=== PATIENT | female | born 1940 | race Caucasian/White ===

== ENCOUNTER → 2018-11-25 10:54 | Outpatient (CLI) | payer MEDICARE, BC | END | disposition home or self-care (01) | LOC: D.LAB 10:54 | DX: R05 Cough (principal) ==

== ENCOUNTER → 2018-12-02 11:03 | Outpatient (CLI) | payer MEDICARE, BC | END | disposition home or self-care (01) | LOC: D.CT 11:03 | DX: R91.8 Other nonspecific abnormal finding of lung field (principal) ==

== ENCOUNTER 2018-12-23 07:02 | Outpatient (CLI) | payer MEDICARE, BC ==
[~2018-12-23] VITALS: Ht 149.9 cm; Wt 52.7 kg
[2018-12-23 07:45] LABS: ANION GAP 13.1 mmol/L (8-16); CARBON DIOXIDE 28.2 mmol/L (21.0-32.0); CREATININE - SERUM 1.1 mg/dL (0.6-1.3); POTASSIUM - SERUM 3.3 mmol/L (3.5-5.1)
[2018-12-23 07:52] LABS: BASOPHILS 0.3 % (0-2); EOSINOPHILS 3.6 % (0-7); HEMOGLOBIN 12.5 g/dL (12-16); IMMATURE GRANULOCYTES 0.2 % (0-5); LYMPHOCYTES 33.5 % (15-50); MCH 30.6 pg (26.0-34.0); MCHC 32.9 g/dL (31.0-37.0); MCV 92.9 fL (80.0-100.0); MEAN PLATELET VOLUME 9.7 fL (7.4-10.4); MONOCYTES 8.4 % (2-11); PLATELET COUNT 274 10x3/uL (130-400); RBC 4.09 10x6/uL (4.00-5.40); RDW 13.1 % (11.5-14.5); WBC 6.4 10x3/uL (4.8-10.8)
[2018-12-23] MEDS ORDERED: KLONOPIN0.5 MG PO (08:22)
[2018-12-23] MEDS ORDERED: ALBUTEROL SULF8.5 GM (08:22)
[2018-12-23] MEDS ORDERED: AMITRIPTYLINE H50 MG PO (08:23)
[2018-12-23] MEDS ORDERED: LIPITOR10 MG PO (08:23)
[2018-12-23 08:32] LABS: APTT 25.8 SECONDS (22.8-39.4); INR 0.96 (0.85-1.17); PROTIME 12.2 SECONDS (11.6-15.0)
[2018-12-23 08:33] VITALS: BP 121/82; Ht 149.9 cm; Wt 52.7 kg
--- NOTE | 2018-12-23 12:08 | NUR ---
1115 SEE POST PROCEDURE CHECKLIST FOR VITAL SIGN TRENDS.
== END 2018-12-23 15:15 | disposition home or self-care (01) ==
LOC: D.OPS 07:02 → D.CT 09:30 → D.OPS 15:15
PROVIDERS: Radiology Vascular & Interventional Radiology; ATTEND Internal Medicine Hematology & Oncology
DX: C34.32 Malignant neoplasm of lower lobe, left bronchus or lung (principal); Z01.812 Encounter for preprocedural laboratory examination

== ENCOUNTER 2019-01-06 06:34 | Day surgery (SDC) | payer MEDICARE, BC ==
[~2019-01-06] VITALS: Ht 152.4 cm; Wt 51.7 kg
[~2019-01-06 06:34] MED LIST: ALBUTEROL SULF8.5 GM; AMITRIPTYLINE H50 MG PO; KLONOPIN0.5 MG PO; LIPITOR10 MG PO
[2019-01-06 09:04] LABS: HEMATOCRIT 37.5 % (36.0-48.0); HEMOGLOBIN 12.1 g/dL (12-16); MCH 30.7 pg (26.0-34.0); MCHC 32.3 g/dL (31.0-37.0); MCV 95.2 fL (80.0-100.0); MEAN PLATELET VOLUME 9.3 fL (7.4-10.4); RBC 3.94 10x6/uL (4.00-5.40); RDW 13.2 % (11.5-14.5); WBC 9.8 10x3/uL (4.8-10.8)
[2019-01-06 09:10] LABS: INR 0.97 (0.85-1.17); PROTIME 12.4 SECONDS (11.6-15.0)
[2019-01-06 09:18] LABS: ANION GAP 13.4 mmol/L (8-16); CARBON DIOXIDE 27.9 mmol/L (21.0-32.0); POTASSIUM - SERUM 3.3 mmol/L (3.5-5.1)
--- NOTE | 2019-01-06 10:31 | NUR ---
CALLED LIZ LÓPEZ REGARDING ORDER OF OLD CHART TO BE PLACED WITH NEW CHART. SHE SAID THAT THEY WOULDN'T NEED ANYTHING FROM THE OLD CHART.
[2019-01-06] MEDS ORDERED: CENTRUM SILVER1 EAC3 PO (10:41)
[2019-01-06] MEDS ORDERED: CALCIUM 500 +1 EAC3 PO (10:41)
[2019-01-06] MEDS ORDERED: VITAMIN B-12500 MC1 PO (10:42)
[2019-01-06 10:49] VITALS: BP 131/75; Ht 152.4 cm; Wt 51.7 kg
--- NOTE | 2019-01-09 12:35 | OP ---
PATIENT NAME: CARLOTA OQUENDO MEDICAL RECORD: [id number] :38 LOCATION:[facility] ADMISSION DATE: SURGEON: LUIZA MILLER MD DATE OF OPERATION: 01/06/2019 SURGEON: Luiza Miller MD ANESTHESIA: General, Dr. Jimenez. OPERATION PERFORMED: Flexible fiberoptic bronchoscopy. PREOPERATIVE DIAGNOSIS: Carcinoma of the left lower lobe. POSTOPERATIVE DIAGNOSIS: Carcinoma of the left lower lobe. INDICATION FOR OPERATION: Carcinoma of the left lower lobe. FINDINGS AT OPERATION: There were no endobronchial lesions or extrinsic compression in the left lower lobe. The remainder of the tracheobronchial tree was normal. ESTIMATED BLOOD LOSS: None. DESCRIPTION OF PROCEDURE: After informed consent, adequate preoperative medication evaluation, the patient was brought to the operating room, placed on the table in the supine position. After induction of general endotracheal anesthesia and application of appropriate monitoring devices, the patient underwent flexible fiberoptic bronchoscopy. There were no endobronchial lesions and no extrinsic compression in the tracheobronchial tree. There were no specimens obtained. The patient tolerated the procedure well, was awakened and transferred to the postanesthesia recovery in satisfactory condition. TRANSINT:[id number] Voice Confirmation ID: [id number] DOCUMENT ID: [id number] LUIZA MILLER MD at 1235 CC: [id number] DICTATION DATE: 01/06/19 1300 PLUMBING HARDWARE ASSEMBLER: 01/06/19 1419 [facility] 01/06/19 [place] [id number]
== END 2019-01-06 14:30 | disposition home or self-care (01) ==
LOC: D.RT 06:34 → D.OPS 06:34 → D.RT 07:00 → D.OPS 14:30
PROVIDERS: ATTEND Internal Medicine Cardiovascular Disease
DX: C34.32 Malignant neoplasm of lower lobe, left bronchus or lung (principal); Z01.812 Encounter for preprocedural laboratory examination

== ENCOUNTER 2019-01-08 05:00 | Inpatient (IN) | payer MEDICARE, BC ==
[2019-01-08] VITALS (22 sets, daily range): BP systolic 111–148; BP diastolic 50–76; BMI 22.3; BMI 26.0
[~2019-01-08] VITALS: Ht 152.4 cm; Wt 59.5 kg
[~2019-01-08 05:00] MED LIST changes: +CALCIUM 500 +1 EAC3 PO; +CENTRUM SILVER1 EAC3 PO; +VITAMIN B-12500 MC1 PO
[2019-01-08 06:17] LABS: ANION GAP 12.6 mmol/L (8-16); BILIRUBIN - TOTAL 0.12 mg/dL (0.2-1.3); CALCIUM 8.3 mg/dL (8.5-10.1); CARBON DIOXIDE 27.2 mmol/L (21.0-32.0); CREATININE - SERUM 0.8 mg/dL (0.6-1.3); PROTEIN - SERUM 6.4 g/dL (6.4-8.2)
[2019-01-08 06:18] LABS: POTASSIUM - SERUM 3.8 mmol/L (3.5-5.1)
[2019-01-08 06:49] LABS: APPEARANCE CLEAR (CLEAR); BILIRUBIN NEGATIVE (NEGATIVE); COLOR STRAW (YELLOW); GLUCOSE NEGATIVE (NEGATIVE); KETONE NEGATIVE (NEGATIVE); NITRITE NEGATIVE (NEGATIVE); PROTEIN NEGATIVE (NEGATIVE); RED CELLS - URINE 0-5 /hpf (0-5); UROBILINOGEN NORMAL (NORMAL); WHITE CELLS - URINE NSEEN /hpf (0-5)
[2019-01-08 06:50] LABS: BACTERIA FEW /hpf (NONE SEEN); EPITHELIAL CELLS NSEEN /hpf (0-5)
--- NOTE | 2019-01-08 12:09 | NUR ---
1129 PT ARRIVED TO ROOM VIA BED WITH OR TEAM O2 WEANED TO 2L NC, R SUBCLAVIAN CVL DRESSING CDI WITH PLASMALYTE DECREASED TO 30ML/HR, NITRO 10ML/HR, AWAITING HARSHIL FROM PHARMACY, L LAT SIDE CT X2 TO 20CM SUCTION BLOODY DRAINAGE, POSTERIOR CT WITH AIR LEAK PRESENT, DR WADE AWARE, INCISION SITE CDI, EPIDURAL CATHETTER IN PLACE, CDI, EPIDURAL 6ML/HR WITH 3ML JEWELRY INSPECTOR Q20 MINUTES, DISCUSSED HOW TO USE WITH PT, PT CONTINUED COMPLAINING OF PAIN AFTER TWO JEWELRY INSPECTOR DOSES, DR VERDE WITH ANESTHESIA NOTIFIED OF BACK PAIN DESPITE JEWELRY INSPECTOR, BP DROPS SLIGHTLY WITH JEWELRY INSPECTOR USE BUT WITHIN PARAMETERS, CRITICORE DRAINING YELLOW URINE, R RADIAL A LINE ZEROED WITH GOOD WAVEFORM, CALL LIGHT WITHIN REACH, WILL CONTINUE TO MONITOR
--- NOTE | 2019-01-08 12:57 | NUR ---
RECIEVED CARE OF PT-PT STATED BACK PAIN EXCRUCIATING AND CANNOT LIVE LIKE THIS-NOTED EPIDURAL IN PLACE-PUSHED VICE PRESIDENT OF MANUFACTURING BUTTON FOR PT AND EXPLAINED WAS DOING THIS-DR VERDE AT BEDSIDE AND ADDRESSED BACK PAIN-ORDER RECIEVED AND NOTED L LATERAL CHEST TUBES MARKED A AND P TO 20CM SUCTION-NOTED OCC SMALL AIRLEAK WITH LEVEL 1 IN P TUBE-[place] CATH IN PLACE
--- NOTE | 2019-01-08 14:38 | NUR ---
1400-DR VERDE CALLED UNIT FOR UPDATE WITH PT PAIN MANAGEMENT-WOKE PT TO ASSESS PAIN LEVEL-SPECIFIED R BACK PAIN-4 -L CONTINUES 7-NOTED NOT USING EPIDURAL PAIN [id number] STATED "FORGOT"-NO FURTHER CHANGES NOTED
--- NOTE | 2019-01-08 17:21 | NUR ---
1600: DR. WADE HERE. PATIENT C/O PAIN AT 9-10. 1620: MORPHINE 2 MG GIVEN IV. 1640: DR. GAMEZ HERE. VERSED 2MG GIVEN IV. PATIENT UP TO SIDE OF BED. 1700: NEW EPIDURAL COMPLETED. BOLUS GIVEN BY DR. GAMEZ.
[2019-01-09] VITALS (29 sets, daily range): BP systolic 91–179; BP diastolic 42–82; Ht 152.4 cm; Wt 59.5 kg
--- NOTE | 2019-01-09 01:28 | NUR ---
PT CONITNUES TO BECOME MORE CONFUSED THE SHIFT GOES ON. HAS REPORTED SEVERAL AUDITORY HALLUCINATIONS. HAS ATTEMPTED TO GET OUT OF BEC MULTIPLE TIMES. BED ALARM ON. PT NEAR NURSES STATION. HAS ATTEMPTED TO PULL AT ART LINE TWICE. WILL MONITOR CLOSELY THROUGHOUT SHIFT.
[2019-01-09 05:59] LABS: HEMATOCRIT 30.9 % (36.0-48.0); HEMOGLOBIN 9.9 g/dL (12-16); MCH 30.1 pg (26.0-34.0); MCV 93.9 fL (80.0-100.0); MEAN PLATELET VOLUME 9.5 fL (7.4-10.4); RBC 3.29 10x6/uL (4.00-5.40); RDW 13.1 % (11.5-14.5)
[2019-01-09 06:24] LABS: ALBUMIN 2.3 g/dL (3.4-5.0); ANION GAP 13.9 mmol/L (8-16); BILIRUBIN - TOTAL 0.18 mg/dL (0.2-1.3); CALCIUM 7.5 mg/dL (8.5-10.1); CARBON DIOXIDE 25.6 mmol/L (21.0-32.0); CREATININE - SERUM 0.8 mg/dL (0.6-1.3); POTASSIUM - SERUM 3.5 mmol/L (3.5-5.1); PROTEIN - SERUM 6.1 g/dL (6.4-8.2)
--- NOTE | 2019-01-09 12:35 | OP ---
PATIENT NAME: CARLOTA OQUENDO MEDICAL RECORD: [id number] :38 [id number] ADMISSION DATE:01/08/19 SURGEON: ORTIZ WADE MD DATE OF OPERATION: 01/08/2019 SURGEON: Ortiz Wade MD ANESTHESIA: General endotracheal, Dr. iJmenez. OPERATION PERFORMED: 1. Left thoracotomy and left lower lobe resection. 2. Radical mediastinal lymphadenectomy. 3. Flexible fiberoptic bronchoscopy. 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 INDICATION FOR OPERATION: Carcinoma of the left lower lobe. FINDINGS OF THE OPERATION: Carcinoma of the left lower lobe crossing the fissure into the upper lobe. We were able to develop a plane between the pulmonary artery and tumor. The left lower lobe bronchus had a margin over a centimeter. ESTIMATED BLOOD LOSS: Less than 100 cc. DESCRIPTION OF PROCEDURE: After informed consent, adequate preoperative medication evaluation, the patient was brought to the operating room, placed on the table in the supine position. After induction of general endotracheal anesthesia and application of appropriate monitoring devices, flexible fiberoptic bronchoscopy and placement of a double lumen tube. The patient was turned in a right lateral decubitus position, protecting the neurological structures and pressure points. The left chest was prepped and draped in sterile field, utilizing Betadine scrub, alcohol, and Betadine solution. A Betadine-impregnated drape was also used. A small left posterolateral thoracotomy incision was made and dissection carried down the fascia. Hemostasis maintained with electrocautery. The fifth interspace was identified and opened. The left hemithorax was examined. The bronchus was identified as well as the pulmonary artery posteriorly. The dissection was carried out circumferentially around the left hilum. The inferior pulmonary ligament was then divided and level 8 nodes were taken for pathology. Dissection was then carefully carried out around the left lower lobe vein and surrounded with a vessel loop. Attention was then turned further posteriorly and the left main stem bronchus identified. Dissection was then carried out around the pulmonary artery and dissection carried distally. We were then able to dissect circumferentially around the pulmonary artery to the lower lobe and a vessel loop placed. The bronchus was then identified and dissected to the lower lobe. After ensuring resectability the pulmonary artery was divided with an Endo-VIANEY stapler as well as the left lower lobe vein. Attention was then turned toward the bronchus and the bronchus was divided utilizing a TA 34.8 stapler. Attention was then turned towards the fissure. The fissure had been crossed OPERATIVE REPORT [id number] CARLOTA OQUENDO above the tumor and inflammation. Therefore, using Endo-VIANEY 4.8 staplers the new fissure was developed superior to the teller fissure. The tumor was removed and sent to pathology in the left lower lobe. Attention was then further carried out around the hilum and level 10 nodes were dissected separately as well as level 5 lymph node. There were no other lymph nodes identified. The chest was irrigated with copious amounts of antibiotic solution and normal saline. The test for air leaks was performed. Progel was used on the suture lines and hilum. A chest tube was placed anteriorly and superiorly as well as posteriorly and inferiorly. Chest was again irrigated. Instrument count and sponge count were correct times 2. The chest was closed in layers utilizing #2 Vicryl pericostal sutures, #1 Vicryl on the muscle, 2-0 Vicryl on the subcutaneous tissue, and 3-0 subcuticular Vicryl in the skin. Sterile dressings were applied. The patient tolerated the procedure well. She was placed in the supine position. Double lumen tube exchanged for a single lumen tube. Flexible fiberoptic bronchoscopy demonstrated a good bronchial stump and no endobronchial clot or mucus. The patient was then extubated and transferred to the CV ICU in satisfactory condition. TRANSINT:[id number] Voice Confirmation ID: [id number] DOCUMENT ID: [id number] ORTIZ WADE MD at 1235 CC: [id number] DICTATION DATE: 01/08/19 1140 GYROSCOPIC INSTRUMENT TESTER: 01/08/19 1411 ADM IN [place] [id number] [place] [address]
[2019-01-10] VITALS (24 sets, daily range): BP systolic 112–158; BP diastolic 43–95
[2019-01-10 06:40] LABS: HEMATOCRIT 30.7 % (36.0-48.0); HEMOGLOBIN 9.6 g/dL (12-16); MCH 30.3 pg (26.0-34.0); MCHC 31.3 g/dL (31.0-37.0); MEAN PLATELET VOLUME 9.8 fL (7.4-10.4); RBC 3.17 10x6/uL (4.00-5.40); RDW 13.2 % (11.5-14.5); WBC 9.7 10x3/uL (4.8-10.8)
[2019-01-10 06:50] LABS: MCV 96.8 fL (80.0-100.0)
[2019-01-10 07:08] LABS: ALBUMIN 2.2 g/dL (3.4-5.0); ALKALINE PHOSPHATASE 70 U/L (46-116); ALT (SGPT) 18 U/L (10-68); CALC OSMOLALITY 284 mosm/kg (275-300); CALCIUM 7.8 mg/dL (8.5-10.1); CARBON DIOXIDE 30.4 mmol/L (21.0-32.0); CHLORIDE - SERUM 106 mmol/L (98-107); CREATININE - SERUM 0.7 mg/dL (0.6-1.3); GLUCOSE 125 mg/dL (74-106); POTASSIUM - SERUM 3.4 mmol/L (3.5-5.1); PROTEIN - SERUM 6.3 g/dL (6.4-8.2); SODIUM 143 mmol/L (136-145); UREA NITROGEN 9 mg/dL (7-18); eGFR NON AFRICAN AMERICAN 85 mL/min (90-120)
--- NOTE | 2019-01-10 13:24 | NUR ---
1050: R RADIAL ART LINE DC'D. MANUAL PRESSURE HELD X 5 MIN. DRESSED WITH 4X4 SECURED WITH TAPE. 1215: DR. WADE HERE. CONDITION UPDATE GIVEN.
--- NOTE | 2019-01-10 19:30 | NUR ---
REC' D TO CARE, DREDGE PUMP OPERATOR PER FLOWSHEET. PT AWAKE AND ANSWERS QUESTIONS APPROP, SOME CONFUSION NOTED, EASILY REORIENTED. L CT X 2 TO 20CM SXN - AIR LEAKS NOTED, DSG C/D/I. PT WITH GOOD COUGH AND GOOD EFFORT ON I.S. = 1250. CRITICORE [place] PATENT AND DRAINING CLEAR, YELLOW URINE. PPP X 4. AIR OVERLAY IN USE. ALARMS ON AND C/L IN USE.
--- NOTE | 2019-01-10 20:04 | NUR ---
PT ON C/L, C/O PAIN - REQUESTS "PAIN SHOT". PRN TORADOL GIVEN - SEE EMAR.
--- NOTE | 2019-01-10 21:00 | NUR ---
NO VISITORS, PT UP IN BED, READING. DENIES NEEDS.
--- NOTE | 2019-01-10 23:10 | NUR ---
REASSESSMENT PER FLOWSHEET, NO ACUTE CHANGES. USES C/L, VSS. NO SIGN OF DISTRESS. ALARMS ON.
[2019-01-11] VITALS (25 sets, daily range): BP systolic 106–154; BP diastolic 49–84
--- NOTE | 2019-01-11 03:10 | NUR ---
REASSESSMENT PER FLOWSHEET, NO ACUTE CHANGES. AWAKENS EASILY, PLEASANTLY CONFUSED AND ABLE TO REORIENT. VSS. RT AT BS FOR RESP TX. PT DENIES NEEDS. CONT TURN COUGH AND DEEP BREATHING WITH PT SPLINTING L SIDE. ALARMS ON AND C/L IN REACH.
[2019-01-11 06:49] LABS: ALKALINE PHOSPHATASE 71 U/L (46-116); BILIRUBIN - TOTAL 0.23 mg/dL (0.2-1.3); CARBON DIOXIDE 32.3 mmol/L (21.0-32.0); CHLORIDE - SERUM 106 mmol/L (98-107); CREATININE - SERUM 0.6 mg/dL (0.6-1.3); GLUCOSE 111 mg/dL (74-106); POTASSIUM - SERUM 3.9 mmol/L (3.5-5.1); PROTEIN - SERUM 6.1 g/dL (6.4-8.2); SODIUM 143 mmol/L (136-145); eGFR NON AFRICAN AMERICAN > 90 mL/min (90-120)
[2019-01-11 06:50] LABS: ALT (SGPT) 28 U/L (10-68); CALC OSMOLALITY 285 mosm/kg (275-300); UREA NITROGEN 12 mg/dL (7-18)
--- NOTE | 2019-01-11 07:00 | NUR ---
REPORT RECEIVED FROM THE OFF GOING RN. SEE ASSESSMENT IN THE PTS FLOW SHEET. PT A&O AND IN A PLESANT MOOD. DENIES PAIN. 1L VIA NC. VSS AT THIS TIME. SINUS TACHYCARDIA 110. LEFT SUBCLAVIAN CVL NOTED. SL. DRESSING C/D/I. EPIDURAL MIDBACK NOTED DRESSING C/D/I. SEE EPIDRUAL FLOW SHEET. LEFT LATERAL CT LABLED A AND P NOTED. NO AIR LEAK NOTED EXECPT CT P NOTED TO HAVE AN AIR LEAK WHENEVER THE PT COUGHS. PT INSTRUCTED TO SPLINT CHEST WITH PILLOW. NON PRODUCTVE STRONG COUGH NOTED. PT PULLS 1250 ON HER IS BUT PT TAKE A FAST DEEP BREATH AND USING THE IS WRONG. INSTRCUTED THE PT HOW TO USE IT THE CORRECT WAY BUT TAKING A SLOW BIG DEEP BREATH AND THE PT PULLED LITTLE UNDER 1000. INSTUCTED TO USE 10X'S/H. FC NOTED WITH CLEAR, YELLOW URINE. CALL LIGHT IN REACH. WILL CONT POC.
[2019-01-11 07:09] LABS: HEMATOCRIT 30.4 % (36.0-48.0); HEMOGLOBIN 9.3 g/dL (12-16); MCH 29.9 pg (26.0-34.0); MCHC 30.6 g/dL (31.0-37.0); MCV 97.7 fL (80.0-100.0); MEAN PLATELET VOLUME 9.7 fL (7.4-10.4); RBC 3.11 10x6/uL (4.00-5.40); RDW 13.1 % (11.5-14.5); WBC 10.1 10x3/uL (4.8-10.8)
--- NOTE | 2019-01-11 07:10 | NUR ---
PT STATED THAT HER PERSONAL BELONGS WHERE DOWN IN OUTPATIENT. [place] FOR NUCLEAR WASTE PROCESS OPERATOR CALLED COLLECTED PERSONAL BELONINGS AND PT STATED THEY ARE ALL THERE. WILL CONT POC.
--- NOTE | 2019-01-11 08:00 | NUR ---
MEAL TRAY PROVIDED FOR THE PT. VSS. DENIES PAIN. WILL CONT POC.
--- NOTE | 2019-01-11 10:29 | NUR ---
DR WADE AT THE PTS BEDSIDE. HE PULLED CT P. DRESSING APPLIED TO THE REMAININED CT. WILL CONT POC.
--- NOTE | 2019-01-11 12:06 | NUR ---
Nutrition Follow Up: Chart reviewed Diet: Regular PO Intake: 47% meal avg Wt stable I<O No BM since admit Rec continue current diet. Will continue to honor food preferences. RD following.
--- NOTE | 2019-01-11 12:55 | NUR ---
CONSULTED AND AT THE PTS BEDSIDE.
--- NOTE | 2019-01-11 17:30 | NUR ---
MEAL TRAY PROVIDED FOR THE PT. VSS. WILL COINT POC.
--- NOTE | 2019-01-11 18:04 | NUR ---
COIN MACHINE ASSEMBLER CHANGED OUT EPIDURAL BAG.
--- NOTE | 2019-01-11 19:10 | NUR ---
Received patient sitting up in bed with eyes open, assessment completed per flowsheet. Patient AO x4, answers appropriately/follows instructions. S1/S2 noted Sinus Tach on telemetry with HR 114, rythmic and regular. Breathing is even/unlabored on 1L via NC with O2 sat 93%, lung sounds clear bilateral upper and mid with diminished RLL / Coarse CT sounds LLL. CT x1 to 20cm suction with no air leak noted, small serosanguinous drainage noted. Abdomen is flat/soft bowel soundes active x4, non-tender. Criticore secured, clear yellow urine noted. All pulses palpable with cap refill < 3 sec, skin warm/dry. Epidural in use, line secure/intact with dressing CDI. Denies pain or other needs at this time, see flowsheet for details. All VSS and will continue to monitor.
--- NOTE | 2019-01-11 21:00 | NUR ---
Patient resting in bed with eyes open, HS meds given without difficulty. Discussed treatment plan with all questions answered to satisfaction. Epidural in use for pain mgmt, line secure/intact. No further needs at this time, all VSS and will continue to monitor.
--- NOTE | 2019-01-11 23:00 | NUR ---
Reassessment completed per flowsheet. Patient slight disorientation to location upon awakening, reorients easily/follows instructions. s1/s2 noted Sinus Tach on telemetry with HR 118, rythmic and regular. Breathing is even/unlabored on 1L via NC with O2 sat 93%, lung sounds clear bilateral upper and mid with diminished RLL / Course CT sounds LLL. L lateral CT x1 to 20cm suction with small serous drainage, no air leak noted. Epidural in use, line secure/intact with dressing CDI. All pulses palpable with cap refill < 3 sec, skin warm/dry. No further needs at this time, see flowsheet for details. All VSS and will continue to monitor.
[2019-01-12] VITALS (26 sets, daily range): BP systolic 107–165; BP diastolic 50–87
--- NOTE | 2019-01-12 01:00 | NUR ---
Patient sleeping in bed, no s/s of distress at this time. Slight disorientation to location when awakened, reorients easily/follows instructions. Epidural in use, line secure/intact with dressing CDI. L lateral CT x1 with small serous drainage, no air leak noted with dressing CDI. No further needs at this time, will continue to monitor.
--- NOTE | 2019-01-12 02:50 | NUR ---
Reassessment completed per flowsheet, patient answers appropriately/follows instructions. S1/S2 noted Sinus Tach on telemetry with HR 112, rythmic and regular. Breathing is even/unlabored on 1L via NC with O2 sat 94%, lung sounds clear bilateral upper and mid with diminished RLL / coarse CT sounds LLL. All pulses palpable with cap refill < 3 sec, skin warm/dry. Epidural in use, line secure/intact. See flowsheet for details, all VSS and will continue to monitor.
--- NOTE | 2019-01-12 05:00 | NUR ---
Patient resting in bed with eyes closed, no s/s of distress at this time. L lateral CT x1 with small serous drainage, dressing CDI. Epidural in use, line secure/intact with dressing CDI. Denies pain or other needs at this time, all VSS and will continue to monitor.
--- NOTE | 2019-01-12 07:50 | NUR ---
BREAKFAST TRAY PROVIDED FOR THE PT. NO ISSUES.
--- NOTE | 2019-01-12 07:50 | NUR ---
REPORT RECEVEID FROM THE OFF GOING RN. SEE ASSESSMENT IN THE PTS FLOW SHEET. PT EASILY WOKEN UP. O2 AT 1L VIA NC. SINTUS TACHYCARDIA NOTED RATE 105. OTHER VSS. PT DENIES PAIN. LEFT SUBCLAVIAN CVL NOTED SL. C/D/I AND PATENT. LEFT LATERAL CT NOTED TO 20 CM OF SUCTION. NO AIR LEAK NOTED. DRESSING C/D/I. FC NOTED WITH CLEAR YELLOW URINE. EPIDURAL NOTED MID BACK. DRESSING C/D/I. PT DENIES PAIN AT THIS TIME. CALL LIGHT IN REACH. WILL CONT POC.
--- NOTE | 2019-01-12 08:04 | NUR ---
DR WADE AT THE PTS BEDSIDE. CT OFF SUCTION PER DR WADE.
--- NOTE | 2019-01-12 10:00 | NUR ---
DR WADE AT THE PTS BEDSIDE AND PULLED REMAINING LEFT CT. DRESSING APPLIED AND NOW C/D/I. PT TOLERATED WELL. DR WADE INSTRCUTED TO CALL ANESTESIA TO PULL EPIDURAL. DR GAMEZ PAGED AND AWARE THAT EPIDURAL NEEDS TO BE PULLED.
--- NOTE | 2019-01-12 12:29 | NUR ---
MEAL TRAY PROIVED FOR THE PT. PT INTERMITEDLY CONFUSED. PLEASANT MOOD. VSS.LEFT CHEST DRESSING C/D/I. CALL LIGHT IN REACH. WILL CONT POC.
--- NOTE | 2019-01-12 12:44 | NUR ---
REID PAGED R/T PULLING EPIDURAL. THEY STATED THEY WILL BE HERE SOON.
--- NOTE | 2019-01-12 13:17 | NUR ---
DR GAMEZ PULLED EPIDURAL PER DR CURTIS ORDERS. PT TOLERATED WELL.
--- NOTE | 2019-01-12 13:23 | NUR ---
10 CC REMOVED FROM FC BULB. FC REMOVED PER ORDRES. PT TOLERATED WELL.
--- NOTE | 2019-01-12 15:24 | NUR ---
PHYSCIAL THEARPY ASSISTED THE PT OOB AND INTO THE BEDSIDE CHAIR. PT TOLERATED WELL.
--- NOTE | 2019-01-12 16:48 | NUR ---
PT RECEIVED A FULL BED BATH. PT MINIMALLY ASSISTED WITH THE BATH. PT SLIGHTLY CONFUSED. DR WADE AWARE. MEAL TRAY PROVIDED FOR THE PT. VSS. CALL LIGHT IN REACH. WILL CONT OC.
--- NOTE | 2019-01-12 18:13 | NUR ---
HEARD THE PT STATE MY NAME FROM THE NURSING STATION. FOUND THE PT SIDEWAYS IN BED. CALL BUTTON WAS IN THE PTS CHAIR. ASSISTED THE REST OF THE WAY IN THE BED AND EXPLAINED TO THE PT THAT SHE NEEDED TO USE THE CALL LIGHT. PT REMAINS TO HAVE INTERMITTED CONFUSION AND PT BECAME ARGUMENATIVE. PROVIDED FRESH LINENS FOR THE PT. CALL LIGHT IN REACH. BED ALARMS CHECKED. THEY ARE FUNTIONAL AND ON. WILL CONT POC.
--- NOTE | 2019-01-12 19:05 | NUR ---
Received patient resting in bed with eyes open, assessment completed per flowsheet. Patient answers appropriately/follows instructions, short periods of confusion/agitation but reorients easily. S1/S2 noted Sinus Tach on telemetry with HR 116, rythmic and regular. Breathing is even/unlabored on 1L via NC with O2 sat 94%, lung sounds clear bilateral upper and mid with diminished RLL and diminished LLL. L lateral chest incision dressing CDI, no bleeding/drainage noted. Abdomen is round/soft with bowel sounds active x4, non-tender. Patient ambulates with standby assist to bathroom, clear yellow urine with no difficulties reported. All pulses palpable with cap refill < 3 sec, skin warm/dry. FUEL TECHNICIAN in use for pain mgmt, no further needs at this time. See flowsheet for details, all VSS and will continue to monitor.
--- NOTE | 2019-01-12 19:08 | MORECARE ---
CASE MANAGEMENT DISCHARGE SUMMARY PATIENT: CARLOTA OQUENDO UNIT: [id number] ADM DATE: 01/08/19 AGE: 78 : 38 SEX: F ROOM/BED: [facility] AUTHOR: JEFFERY GREGG PHYSICIAN: REFERRING PHYSICIAN: LUIZA WADE MD DATE OF SERVICE: 01/12/19 Discharge Plan Patient Name: CARLOTA OQUENDO Facility: [facility]:[place] : 1940 Planned Disposition: Home Anticipated Discharge Date: Discharge Date: Expected LOS: Initial Reviewer: [email or web address] Initial Review Date: 01/12/2019 Generated: 01/12/19 8:07 pm Patient Name: CARLTOA OQUENDO Page [id number] at 1908 All edits/amendments must be made on the electronic document DICTATION DATE: 01/12/191906 PLASTIC TOP ASSEMBLER: JUDSON 01/12/191906 RPT#: [id number] DC DATE: STATUS: ADM IN [facility] [address] [place] [address] END OF REPORT
--- NOTE | 2019-01-12 19:14 | MORECARE ---
CASE MANAGEMENT DISCHARGE SUMMARY PATIENT: CARLOTA OQUENDO UNIT: [id number] ADM DATE: 01/08/19 AGE: 78 : 38 SEX: F ROOM/BED: [facility] AUTHOR: JEFFERY GREGG PHYSICIAN: REFERRING PHYSICIAN: LUIZA WADE MD DATE OF SERVICE: 01/12/19 Discharge Plan Patient Name: CARLOTA OQUENDO Facility: [facility]:[place] : 1940 Planned Disposition: Home Anticipated Discharge Date: Discharge Date: Expected LOS: Initial Reviewer: [email or web address] Initial Review Date: 01/12/2019 Generated: 01/12/19 8:14 pm DCPIA - Discharge Planning Initial Assessment Updated by [email or web address]: Isabela Koawlski on 01/12/19 7:11 pm * Is the patient Alert and Oriented? Yes * How many steps to enter\exit or inside your home? * PCP Juan J * [facility] * Preadmission Environment Home Alone * ADLs Independent * Other Equipment motorized scooter * List name and contact numbers for known caregivers / representatives who currently or will assist patient after discharge: Juanjo Abernathy [facility] - [phone] [facility] * Verbal permission to speak to the caregivers and representatives has been obtained from the patient. Yes * Community resources currently utilized None * Please name any agencies selected above. Patient states she has caregivers to help when she gets home * Additional services required to return to the preadmission environment? No * Can the patient safely return to the preadmission environment? Yes * Has this patient been hospitalized within the prior 30 days at any hospital? No Last DP export: 01/12/19 6:07 pm Patient Name: CARLOTA OQUENDO Page 17927 at 1914 All edits/amendments must be made on the electronic document DICTATION DATE: 01/12/191912 SALES REVIEW CLERK: JUDSON 01/12/191912 RPT#: [id number] DC DATE: STATUS: ADM IN [facility] [address] [place] [address] END OF REPORT
--- NOTE | 2019-01-12 19:21 | MORECARE ---
CASE MANAGEMENT DISCHARGE SUMMARY PATIENT: CARLOTA OQUENDO UNIT: [id number] ADM DATE: 01/08/19 AGE: 78 : 38 SEX: F ROOM/BED: [facility] AUTHOR: MARYSOL,DOC PHYSICIAN: REFERRING PHYSICIAN: LUIZA WADE MD DATE OF SERVICE: 01/12/19 Discharge Plan Patient Name: CARLOTA OQUENDO Facility: [facility]:[place] : 1940 Planned Disposition: Home Anticipated Discharge Date: Discharge Date: Expected LOS: Initial Reviewer: [email or web address] Initial Review Date: 01/12/2019 Generated: 01/12/19 8:21 pm Comments DCP- Discharge Planning Updated by [email or web address]: Isabela Kowalski on 01/12/19 6:[address] Patient Name: CARLOTA OQUENDO Admission Status: Urgent Accout number: [id number] Admission Date: 01-08-2019 : 1940 Admission Diagnosis:MALIGNANT NEOPLASM OF LOWER LOBE, LEFT BRONCHUS OR LUNG Attending: LUIZA WADE Current LOS: 4 Anticipated DC Date: Planned Disposition: Home Primary Insurance: MEDICARE A & B Discharge Planning Comments: CM met with patient at bedside. Patient states she lives alone. Patient states she has a good support system. She states she plans on returning to her home upon discharge. Patient states that prior to admission she has arranged for transportation home and for caregivers to stay with her/ help her when discharged. Her orthodoxy is setting up meals for her upon discharge. Patient may need walk test if oxygen is required upon discharge. CM will continue to follow and assist as needed with discharge planning / needs. Studio Couch Frame Builder: Isabela Kowalski DCPIA - Discharge Planning Initial Assessment Updated by [email or web address]: Isabela Kowalski on 01/12/19 7:11 pm * Is the patient Alert and Oriented? Yes * How many steps to enter\exit or inside your home? * PCP Juan J * [facility] * Preadmission Environment Home Alone * ADLs Independent * Other Equipment motorized scooter * List name and contact numbers for known caregivers / representatives who currently or will assist patient after discharge: Juanjo Abernathy - [facility] - [phone] Sasha - Community [facility] * Verbal permission to speak to the caregivers and representatives has been obtained from the patient. Yes * Community resources currently utilized None * Please name any agencies selected above. Patient states she has caregivers to help when she gets home * Additional services required to return to the preadmission environment? No * Can the patient safely return to the preadmission environment? Yes * Has this patient been hospitalized within the prior 30 days at any hospital? No Last DP export: 01/12/19 6:14 pm Patient Name: CARLOTA OQUENDO Page 73471 at 1921 All edits/amendments must be made on the electronic document DICTATION DATE: 01/12/191919 RECEIVING TELLER: JUDSON 01/12/191919 RPT#: [id number] DC DATE: STATUS: ADM IN [facility] [address] [place] [address] END OF REPORT
--- NOTE | 2019-01-12 21:00 | NUR ---
Patient assisted to bathroom upon request, no difficulties reported. Repositioned in bed, no visitors at this time. HS meds given without difficulty, EXTRUDER OPERATOR VERTICAL in use for pain mgmt. No further needs at this time, all VSS and will continue to monitor.
--- NOTE | 2019-01-12 23:00 | NUR ---
Reassessment completed per flowsheet, no changes from previous assessment. Patient answers appropriately/follows instructions, short periods oc disorientation on awakening but reorients easily. S1/S2 noted Sinus Tach on telemetry with HR 118, rythmic and regular. Breathing is even/unlobred on 1L via NC with O2 sat 95%, lung sounds clear bilateral upper and mid with diminished lower / absent LLL. All pulses palpable with cap refill < 3 sec, skin warm/dry. ADJUNCT LECTURER in use for pain mgmt, see flowsheet for details. All VSS and will continue to monitor.
[2019-01-13] VITALS (24 sets, daily range): BP systolic 108–157; BP diastolic 57–80
--- NOTE | 2019-01-13 01:00 | NUR ---
Patient assisted to bathroom, clear yellow urine noted. Gait is upright/steady, standby assist provided. Repositioned in bed and connected to monitor, all VSS and will continue to monitor.
--- NOTE | 2019-01-13 03:00 | NUR ---
Reassessment completed per flowsheet, no changes from previous assessment. Patient disoriented upon awakening, follows/instructions and reorients easily. S1/S2 noted Sinus Tach on telemetry with HR 106, rythmic and regular. Breathing is even/unlabored on 2L via NC with O2 sat 95%, lung sounds clear bilateral upper and mid with diminished RLL and diminished/absent LLL. L lateral chest incision dressing CDI, no bleeding/drainage noted. All pulses palpable with cap refill < 3 sec, skin warm/dry. HOSPICE BEREAVEMENT COORDINATOR in use for pain mgmt, see flowsheet for details. All VSS and will continue to monitor.
--- NOTE | 2019-01-13 04:10 | NUR ---
Patient off unit to Radiology for PA/Lat, tolerated well. Returned to CV and connected to monitor, patient refused chair and positioned in bed.
--- NOTE | 2019-01-13 05:00 | NUR ---
Patient sleeping in bed with eyes closed, stress incontinence of bladder in bed. Full linen change performed, denies further needs and will continue to monitor.
--- NOTE | 2019-01-13 07:00 | NUR ---
REPORT RECIEVED FROM THE OFF GOING RN. SEE ASSESSMENT IN THE PTS FLOW SHEET. PT A&O X4 BUT HAS INTTERMITTED CONFUSION. PT HAD THIS YESTERDAY AND THE NIGHT NURSE REPORT CONFUSION WELL. DR WADE AWARE. O2 2L VIA NC. PT PULLS ABOUT 750 ON HER IS. INSTRUCTED TO USE 10X'S/H. L SUBCLAVIAN DRESSING C/D/I. SEE IV FLUIDS IN FLOW SHEET. INDUSTRIAL ECOLOGY TECHNICIAN NOTED. LEFT LATERAL INCISION EMPLOYEE PLACEMENT SPECIALIST AND WELL APPROXIMATED. LEFT LATERAL CHEST WHERE THE CT SITES WERE ARE C/D/I. DEMINISHED LEFT LUNG SOUNDS AND RIGHT LUNG CTA. PT ASSISTED OOB AND INTO HER BEDSIDE CHAIR. PT VOIDED CLEAR, YELLOW URINE IN THE COMMODE. SINUS TACH ON THE MONITOR. CALL LIGHT IN REACH. WILL CONT POC.
--- NOTE | 2019-01-13 08:00 | NUR ---
MEAL TRAY PROVIDED FOR THE PT. NO ISSUES.
--- NOTE | 2019-01-13 09:04 | NUR ---
PHYSCIAL THEARPY AMBULATED WITH THE PT UP AND DOWN THE COS[address] WAY. PT HAD A NORMAL STEADY GAIT. VSS. PT BACK IN HER BEDSIDE CHAIR. PRESSURE ALARM ON.
--- NOTE | 2019-01-13 09:30 | NUR ---
Nutrition Follow Up Pt is on a regular diet with 70% average po intake Pt is not ordering much per nursing Pt reports she is trying to follow a ketogenic diet however she also reports enjoying the desserts and the nurse reported she ordered a hamburger Weight on admit 113-114# Pts weigh went up to 136lb on 01/09 and is currently 130lb Pt reports usual weight 115lb Encouraged good po intake to help optimize healing RD following
--- NOTE | 2019-01-13 09:38 | NUR ---
ATTEMPTED TO CALL DR WADE RT CXR. UNABLE TO GET AHOLD OF DR WADE. DR VEGA IS AWARE OF RESULTS. RENE RN, DR CURTIS NURSE NOTIFIED.
--- NOTE | 2019-01-13 09:54 | NUR ---
PT ASSISTED TO THE BATHROOM. NORMAL STEADY GAIT. DENIES PAIN. CALL LIGHT IN REACH. WILL CONT POC.
--- NOTE | 2019-01-13 10:37 | NUR ---
DR WADE IN THE UNIT. AWARE OF CXR.
--- NOTE | 2019-01-13 10:50 | NUR ---
DR WADE IN THE PTS ROOM.
--- NOTE | 2019-01-13 11:00 | NUR ---
REASESSMENT COMPLETED. NO S/SX OF DISTRESS/DISCOMFORT NOTED. SEE FLOW SHEET. CALL LIGHT IN REACH. WILL CONT POC.
--- NOTE | 2019-01-13 14:19 | NUR ---
PT ASSISTED TO THE BATHROOM AND BACK. PT VOIDED. CALL LIGHT IN REACH. WILL CONT POC.
--- NOTE | 2019-01-13 15:28 | NUR ---
PHYSCIAL THEARPY AMBULATED WITH THE PT. PT TOLERATED WELL EXCEPT SHE BECAME SOB. VSS. PT BACK IN HER BEDSIDE CHAIR.
--- NOTE | 2019-01-13 18:04 | NUR ---
PT ASSISTED TO THE BATHROOM AND THEN TO BED. PO WATER PROVIDED. DENIES OTHER NEEDS AT THIS TIME. WILL CONT POC.
--- NOTE | 2019-01-13 18:38 | NUR ---
PRN MEDICATION GIVEN FOR PAIN WHILE COUGHING. SEE MAR.
--- NOTE | 2019-01-13 19:05 | NUR ---
Received patient resting in bed with eyes open, assessment completed per flowsheet. Patient AO x4, answers appropriately/follows instructions. S1/S2 noted Sinus Tach on telemetry with HR 115, rythmic and regular. Breathing is even/unlabored on 2L via NC with O2 sat 97%, lung sounds clear RUL/RML/RLL with diminished OBIE and absent LLL. L lateral chest incision dressing CDI, no bleeding/drainage noted. All pulses palpable with full ROM all extremities, cap refill < 3 sec with skin warm/dry. Gait is upright/stable, standby assist provided. Denies pain or other needs at this time, see flowsheet for details. All VSS and will continue to monitor.
--- NOTE | 2019-01-13 21:05 | NUR ---
Patient assisted to bathroom at request, no difficulties reported. HS meds given as ordered, repositoned for comfort. No further needs at this time, will continue to monitor.
--- NOTE | 2019-01-13 23:05 | NUR ---
Reassessment completed per flowsheet, no change from previous assessment. S1/S2 noted Sinus Tach on telemetry with HR 103, rythmic and regular. Breathing is even/unlabored on 2L via NC with O2 sat 94%, lung sounds clear RUL/RML/RLL with diminished OBIE and absent LLL. All pulses palpable with cap refill < 3 sec, skin warm/dry. Patient denies pain or other needs at this time, see flowsheet for details. All VSS and will continue to monitor.
[2019-01-14] VITALS (25 sets, daily range): BP systolic 94–159; BP diastolic 46–92
--- NOTE | 2019-01-14 01:22 | NUR ---
Patient sleeping in bed with eyes closed, no s/s of distress at this time. No further needs at this time, all VSS and will continue to monitor.
--- NOTE | 2019-01-14 03:10 | NUR ---
Reassessment completed per flowsheet, patient disoriented to situation upon awakening. S1/S2 noted NSR on telemetry with HR 97, rythmic and regular. Breathing is even/unlabored on 2L via NC with O2 sat 96%, lung sounds clear bilateral upper and mid with diminished RLL and absent LLL. L lateral chest incision dressing CDI, no bleeding/drainage noted. All pulses palpable with cap refill < 3 sec, skin warm/dry. Denies pain or other needs, see flowsheet for details. All VSS and will continue to monitor.
--- NOTE | 2019-01-14 04:00 | NUR ---
Patient off unit to radiology for PA/Lat, tolerated well. Returned to CV04, patient refused chair so placed in bed and connected to monitor. Denies pain or other needs, all VSS and will continue to monitor.
--- NOTE | 2019-01-14 05:05 | NUR ---
Patient resting in bed with eyes closed, full bed bath/linen change performed. Denies pain or other needs at this time, all VSS and will continue to monitor.
--- NOTE | 2019-01-14 07:15 | NUR ---
ASSESSMENT COMPLETE PER FLOWSHEET. PT IS CONFUSED TO TIME, PLACE, AND SITUATION. REORIENT TO ALL. VOICES NO CO AT TIME.
--- NOTE | 2019-01-14 08:40 | NUR ---
UP IN CHAIR TALKING TO SELF. VOICES NO CO AT TIME.
--- NOTE | 2019-01-14 12:00 | NUR ---
UP IN CHAIR FOR LUNCH. NO CO AT TIME. CONTINUES TO BE CONFUSED AT TIME.
--- NOTE | 2019-01-14 15:00 | NUR ---
UP TO BATHROOM. BATH GIVEN. LINENS CHANGED.
--- NOTE | 2019-01-14 17:00 | NUR ---
EATING SUPPER NO CO AT TIME.
--- NOTE | 2019-01-14 18:24 | MORECARE ---
CASE MANAGEMENT DISCHARGE SUMMARY PATIENT: CARLOTA OQUENDO UNIT: [id number] ADM DATE: 01/08/19 AGE: 78 : 38 SEX: F ROOM/BED: [facility] AUTHOR: MARYSOL,DOC PHYSICIAN: REFERRING PHYSICIAN: LUIZA WADE MD DATE OF SERVICE: 01/14/19 Discharge Plan Patient Name: CARLOTA OQUENDO Facility: [facility]:[place] : 1940 Planned Disposition: Home Anticipated Discharge Date: Discharge Date: Expected LOS: Initial Reviewer: [email or web address] Initial Review Date: 01/12/2019 Generated: 01/14/19 7:23 pm Comments DCP- Discharge Planning Updated by [email or web address]: Isabela Kowalski on 01/14/19 5:[address] CM received order for home care and home 02 and nebulizer. CM spoke with patient she stated that she wants [facility] - [place] [phone]. Patient has already spoken with them but she is wanting 24 hr care for the 36-48hrs after discharge. CM explained this request to Hal and he was going to contact patient. CM explained that patient will probably discharge on Friday. CM also spoke with patient regarding DME. [facility] signed for [facility] [phone] for DME. CM will fax records to set up home 02 and nebulizer. CM will continue to follow and assist as needed with discharge planning / needs. DCP- Discharge Planning Updated by [email or web address]: Isabela Kowalski on 01/12/19 6:[address] Patient Name: CARLOTA OQUENDO Admission Status: Urgent Accout number: [id number] Admission Date: 01-08-2019 : 1940 Admission Diagnosis:MALIGNANT NEOPLASM OF LOWER LOBE, LEFT BRONCHUS OR LUNG Attending: LUIZA WADE Current LOS: 4 Anticipated DC Date: Planned Disposition: Home Primary Insurance: MEDICARE A & B Discharge Planning Comments: CM met with patient at bedside. Patient states she lives alone. Patient states she has a good support system. She states she plans on returning to her home upon discharge. Patient states that prior to admission she has arranged for transportation home and for caregivers to stay with her/ help her when discharged. Her christian is setting up meals for her upon discharge. Patient may need walk test if oxygen is required upon discharge. CM will continue to follow and assist as needed with discharge planning / needs. Convolute Tube Winder: Isabela Kowalski DCPIA - Discharge Planning Initial Assessment Updated by [email or web address]: Isabela Kowalski on 01/12/19 7:11 pm * Is the patient Alert and Oriented? Yes * How many steps to enter\exit or inside your home? * PCP Juan J * [facility] * Preadmission Environment Home Alone * ADLs Independent * Other Equipment motorized scooter * List name and contact numbers for known caregivers / representatives who currently or will assist patient after discharge: Juanjo Abernathy - son - [phone] Almita King [facility] Sherri HSV * Verbal permission to speak to the caregivers and representatives has been obtained from the patient. Yes * Community resources currently utilized None * Please name any agencies selected above. Patient states she has caregivers to help when she gets home * Additional services required to return to the preadmission environment? No * Can the patient safely return to the preadmission environment? Yes * Has this patient been hospitalized within the prior 30 days at any hospital? No Last DP export: 01/12/19 6:21 pm Patient Name: CARLOTA OQUENDO Page [id number] at 1824 All edits/amendments must be made on the electronic document DICTATION DATE: 01/14/191822 LIMEHOUSE WORKER: JUDSON 01/14/191822 RPT#: [id number] DC DATE: STATUS: ADM IN [facility] [address] [place] [address] END OF REPORT
--- NOTE | 2019-01-14 18:44 | MORECARE ---
CASE MANAGEMENT DISCHARGE SUMMARY PATIENT: CARLOTA OQUENDO UNIT: [id number] ADM DATE: 01/08/19 AGE: 78 : 38 SEX: F ROOM[facility]BED: [facility] AUTHOR: MARYSOL,DOC PHYSICIAN: REFERRING PHYSICIAN: LUIZA WADE MD DATE OF SERVICE: 01/14/19 Discharge Plan Patient Name: CARLOTA OQUENDO Facility: [facility]:[place] : 1940 Planned Disposition: Home Anticipated Discharge Date: Discharge Date: Expected LOS: Initial Reviewer: [email or web address] Initial Review Date: 01/12/2019 Generated: 01/14/19 7:43 pm Comments DCP- Discharge Planning Updated by [email or web address]: Isabela Kowalski on 01/14/19 5:[address] CM received order for home care and home 02 and nebulizer. CM spoke with patient she stated that she wants [facility] - [place] [phone]. Patient has already spoken with them but she is wanting 24 hr care for the 36-48hrs after discharge. CM explained this request to Hal and he was going to contact patient. CM explained that patient will probably discharge on Friday. CM also spoke with patient regarding DME. [facility] signed for [facility] [phone] for DME. CM will fax records to set up home 02 and nebulizer. CM will continue to follow and assist as needed with discharge planning / needs. DCP- Discharge Planning Updated by [email or web address]: Isabela Kowalski on 01/12/19 6:[address] Patient Name: CARLOTA OQUENDO Admission Status: Urgent Accout number: [id number] Admission Date: 01-08-2019 : 1940 Admission Diagnosis:MALIGNANT NEOPLASM OF LOWER LOBE, LEFT BRONCHUS OR LUNG Attending: LUIZA WADE Current LOS: 4 Anticipated DC Date: Planned Disposition: Home Primary Insurance: MEDICARE A & B Discharge Planning Comments: CM met with patient at bedside. Patient states she lives alone. Patient states she has a good support system. She states she plans on returning to her home upon discharge. Patient states that prior to admission she has arranged for transportation home and for caregivers to stay with her/ help her when discharged. Her gnosticist is setting up meals for her upon discharge. Patient may need walk test if oxygen is required upon discharge. CM will continue to follow and assist as needed with discharge planning / needs. Quality Assurance Consultant: Isabela SHINA - Discharge Planning Initial Assessment Updated by [email or web address]: Isabela Kowalski on 01/12/19 7:11 pm * Is the patient Alert and Oriented? Yes * How many steps to enter\exit or inside your home? * PCP Juan J * [facility] * Preadmission Environment Home Alone * ADLs Independent * Other Equipment motorized scooter * List name and contact numbers for known caregivers / representatives who currently or will assist patient after discharge: Juanjo Abernathy - son - [phone] Almita King [facility] Sherri HSV * Verbal permission to speak to the caregivers and representatives has been obtained from the patient. Yes * Community resources currently utilized None * Please name any agencies selected above. Patient states she has caregivers to help when she gets home * Additional services required to return to the preadmission environment? No * Can the patient safely return to the preadmission environment? Yes * Has this patient been hospitalized within the prior 30 days at any hospital? No External Providers External Provider: OTHER-OTHER Next Contact Date: Service Request Date: Service Type: Resolution: Reviewer: Comments: Last DP export: 01/14/19 5:24 pm Patient Name: CARLOTA OQUENDO Page [id number] at 1844 All edits/amendments must be made on the electronic document DICTATION DATE: 01/14/191842 EFFICIENCY ANALYST: JUDSON 01/14/191842 RPT#: [id number] DC DATE: STATUS: ADM IN [facility] [address] [place] [address] END OF REPORT
--- NOTE | 2019-01-14 21:00 | NUR ---
PT ASSISTED TO RESTROOM. ATTEMPTED TO USE IODINE TOOTHPASTE. CLEANED BRUSH AND ASSISTED WITH ORAL CARE. VSS WILL MONITOR
--- NOTE | 2019-01-14 22:05 | NUR ---
REPORT RECEIVED AND ASSESSMENT COMPLETD. SEE FLOWSHEET FOR FULL DETAILS. VSS. WILL MONITOR THROUGHOUT SHIFT
--- NOTE | 2019-01-14 23:15 | NUR ---
RECIEVED REPORT ON PT, ASSUMING CARE.
--- NOTE | 2019-01-14 23:33 | NUR ---
REASSESSMENT COMPLETED. SEE FLOWSHEET
[2019-01-15] VITALS (12 sets, daily range): BP systolic 108–154; BP diastolic 46–82
--- NOTE | 2019-01-15 01:33 | NUR ---
2330 UP TO RR. TOLERATED ACITVITY WELL. 0000 UP TO RR. SLIGHTLY CONFUSED. TOLERATED ACTIVITY WELL. 0100 UP TO RR. CONFUSION NOTED, REORIENTED TO PLACE AND SITUATION. PATIENT THOUGHT THAT SHE WAS AT HOME, THAT HER SON WAS OUTSIDE HER ROOM AND THAT SOMEONE WAS SMOKING, REORIENTED. HEMODYNAMICALLY STABLE. WILL CONTINUE PLAN OF CARE.
--- NOTE | 2019-01-15 02:06 | NUR ---
ATTEMPTING TO GET OUT OF BED, STATED SHE THOUGHT HER DAUGHTER WAS HERE TO LET HER KNOW THAT HER SECOND HAD . REORIENTED, BACK TO BED. WILL CONTINUE TO MONITOR. BED ALARM ON.
--- NOTE | 2019-01-15 03:48 | NUR ---
0300 REASSESSMENT COMPLETE, PLEASE SEE FLOW SHEETS FOR DETAILS. 0330 UP TO CAMODE. TOLERATED WELL.
--- NOTE | 2019-01-15 05:00 | NUR ---
O2 DEMANDS INCREASED, PROVIDED SUPPLEMENTAL O2 ON TRANSPORT AND INCREASED RATE TO 4L/MIN. TOLERATED TRANSPORT TO AND FROM PA & LAT WELL. HEMODYNAMICALLY STABLE. OFFERED BATH, THIS WAS REFUSED. BED LOW AND LOCKED, CALL LIGHT IN REACH, ALARM ON. WILL CONTINUE PLAN OF CARE.
--- NOTE | 2019-01-15 05:41 | NUR ---
PULLED 1100 ON I.S.
[2019-01-15 06:08] LABS: HEMATOCRIT 29.4 % (36.0-48.0); MCH 29.5 pg (26.0-34.0); MCHC 30.6 g/dL (31.0-37.0); MCV 96.4 fL (80.0-100.0); MEAN PLATELET VOLUME 9.2 fL (7.4-10.4); RBC 3.05 10x6/uL (4.00-5.40); RDW 12.9 % (11.5-14.5); WBC 11.5 10x3/uL (4.8-10.8)
[2019-01-15 06:36] LABS: ALKALINE PHOSPHATASE 88 U/L (46-116); ALT (SGPT) 58 U/L (10-68); BILIRUBIN - TOTAL 0.29 mg/dL (0.2-1.3); CALC OSMOLALITY 270 mosm/kg (275-300); CALCIUM 8.7 mg/dL (8.5-10.1); CARBON DIOXIDE 29.9 mmol/L (21.0-32.0); CHLORIDE - SERUM 99 mmol/L (98-107); CREATININE - SERUM 0.7 mg/dL (0.6-1.3); GLUCOSE 105 mg/dL (74-106); POTASSIUM - SERUM 4.2 mmol/L (3.5-5.1); PROTEIN - SERUM 6.7 g/dL (6.4-8.2); SODIUM 136 mmol/L (136-145); UREA NITROGEN 10 mg/dL (7-18); eGFR NON AFRICAN AMERICAN 85 mL/min (90-120)
--- NOTE | 2019-01-15 10:54 | NUR ---
NUTRITION F/U NURSING REPORTS PT WITH GOOD INTAKE REG DIET. WILL CONTINUE TO HONOR FOOD PREFERENCES, MONITOR PO INTAKE. RD FOLLOWING
--- NOTE | 2019-01-15 12:22 | MORECARE ---
CASE MANAGEMENT DISCHARGE SUMMARY PATIENT: CARLOTA OQUENDO UNIT: [id number] ADM DATE: 01/08/19 AGE: 78 : 38 SEX: F ROOM/BED: [facility] AUTHOR: MARYSOL,DOC PHYSICIAN: REFERRING PHYSICIAN: LUIZA WADE MD DATE OF SERVICE: 01/15/19 Discharge Plan Patient Name: CARLOTA OQUENDO Facility: [facility]:[place] : 1940 Planned Disposition: Home Anticipated Discharge Date: Discharge Date: Expected LOS: Initial Reviewer: [email or web address] Initial Review Date: 01/12/2019 Generated: 01/15/19 1:22 pm Comments DCP- Discharge Planning Updated by [email or web address]: Isabela Kowalski on 01/14/19 5:[address] CM received order for home care and home 02 and nebulizer. CM spoke with patient she stated that she wants [facility] - [place] [phone]. Patient has already spoken with them but she is wanting 24 hr care for the 36-48hrs after discharge. CM explained this request to Hal and he was going to contact patient. CM explained that patient will probably discharge on Friday. CM also spoke with patient regarding DME. [facility] signed for [facility] [phone] for DME. CM will fax records to set up home 02 and nebulizer. CM will continue to follow and assist as needed with discharge planning / needs. DCP- Discharge Planning Updated by [email or web address]: Isabela Kowalski on 01/12/19 6:[address] Patient Name: CARLOTA OQUENDO Admission Status: Urgent Accout number: [id number] Admission Date: 01-08-2019 : 1940 Admission Diagnosis:MALIGNANT NEOPLASM OF LOWER LOBE, LEFT BRONCHUS OR LUNG Attending: LUIZA WADE Current LOS: 4 Anticipated DC Date: Planned Disposition: Home Primary Insurance: MEDICARE A & B Discharge Planning Comments: CM met with patient at bedside. Patient states she lives alone. Patient states she has a good support system. She states she plans on returning to her home upon discharge. Patient states that prior to admission she has arranged for transportation home and for caregivers to stay with her/ help her when discharged. Her yazidi is setting up meals for her upon discharge. Patient may need walk test if oxygen is required upon discharge. CM will continue to follow and assist as needed with discharge planning / needs. Dealer Accounts Investigator: Isabela SHINA - Discharge Planning Initial Assessment Updated by [email or web address]: Isabela Kowalski on 01/12/19 7:11 pm * Is the patient Alert and Oriented? Yes * How many steps to enter\exit or inside your home? * PCP Juan J * [facility] * Preadmission Environment Home Alone * ADLs Independent * Other Equipment motorized scooter * List name and contact numbers for known caregivers / representatives who currently or will assist patient after discharge: Juanjo Abernathy - son - [phone] Almita King [facility] Sherri HSV * Verbal permission to speak to the caregivers and representatives has been obtained from the patient. Yes * Community resources currently utilized None * Please name any agencies selected above. Patient states she has caregivers to help when she gets home * Additional services required to return to the preadmission environment? No * Can the patient safely return to the preadmission environment? Yes * Has this patient been hospitalized within the prior 30 days at any hospital? No External Providers External Provider: OTHER-OTHER Next Contact Date: Service Request Date: Service Type: Resolution: Reviewer: Comments: Last DP export: 01/14/19 5:43 pm Patient Name: CARLOTA OQUENDO Page [phone] at 1222 All edits/amendments must be made on the electronic document DICTATION DATE: 01/15/19 1222 PBX INSPECTOR: JUDSON 01/15/19 1222 RPT#: [id number] DC DATE: STATUS: ADM IN [facility] [address] [place] [address] END OF REPORT
[2019-01-15] MEDS ORDERED: LOPRESSOR25 MG PO (14:12)
[2019-01-15] MEDS ORDERED: ASPIRIN EC81 M1 PO (14:14)
[2019-01-15] MEDS ORDERED: PERCOCET 5-3251 TAB PO (14:17)
--- NOTE | 2019-01-15 16:11 | MORECARE ---
CASE MANAGEMENT DISCHARGE SUMMARY PATIENT: CARLOTA OQUENDO UNIT: [id number] ADM DATE: 01/08/19 AGE: 78 : 36 SEX: F ROOM[facility]BED: [facility] AUTHOR: MARYSOL,DOC PHYSICIAN: REFERRING PHYSICIAN: LUIZA WADE MD DATE OF SERVICE: 01/15/19 Discharge Plan Patient Name: CARLOTA OQUENDO Facility: [facility]:[place] : 1940 Planned Disposition: Home Anticipated Discharge Date: Discharge Date: Expected LOS: Initial Reviewer: [email or web address] Initial Review Date: 01/12/2019 Generated: 01/15/19 5:11 pm Comments DCP- Discharge Planning Updated by [email or web address]: Isabela Kowalski on 01/14/19 5:[address] CM received order for home care and home 02 and nebulizer. CM spoke with patient she stated that she wants [facility] - [place] [phone]. Patient has already spoken with them but she is wanting 24 hr care for the 36-48hrs after discharge. CM explained this request to Hal and he was going to contact patient. CM explained that patient will probably discharge on Friday. CM also spoke with patient regarding DME. [facility] signed for [facility] [phone] for DME. CM will fax records to set up home 02 and nebulizer. CM will continue to follow and assist as needed with discharge planning / needs. DCP- Discharge Planning Updated by [email or web address]: Isabela Kowalski on 01/12/19 6:[address] Patient Name: CARLOTA OQUENDO Admission Status: Urgent Accout number: [id number] Admission Date: 01-08-2019 : 1940 Admission Diagnosis:MALIGNANT NEOPLASM OF LOWER LOBE, LEFT BRONCHUS OR LUNG Attending: LUIZA WADE Current LOS: 4 Anticipated DC Date: Planned Disposition: Home Primary Insurance: MEDICARE A & B Discharge Planning Comments: CM met with patient at bedside. Patient states she lives alone. Patient states she has a good support system. She states she plans on returning to her home upon discharge. Patient states that prior to admission she has arranged for transportation home and for caregivers to stay with her/ help her when discharged. Her jain is setting up meals for her upon discharge. Patient may need walk test if oxygen is required upon discharge. CM will continue to follow and assist as needed with discharge planning / needs. Electric Truck Operator: Isabela Kowalski DCPIA - Discharge Planning Initial Assessment Updated by [email or web address]: Isabela Kowalski on 01/12/19 7:11 pm * Is the patient Alert and Oriented? Yes * How many steps to enter\exit or inside your home? * PCP Juan J * [facility] * Preadmission Environment Home Alone * ADLs Independent * Other Equipment motorized scooter * List name and contact numbers for known caregivers / representatives who currently or will assist patient after discharge: Juanjo Abernathy - son - [phone] Almita King [facility] Sherri HSV * Verbal permission to speak to the caregivers and representatives has been obtained from the patient. Yes * Community resources currently utilized None * Please name any agencies selected above. Patient states she has caregivers to help when she gets home * Additional services required to return to the preadmission environment? No * Can the patient safely return to the preadmission environment? Yes * Has this patient been hospitalized within the prior 30 days at any hospital? No Last DP export: 01/15/19 11:22 am Patient Name: CARLOTA OQUENDO Page [id number] at 1611 All edits/amendments must be made on the electronic document DICTATION DATE: 01/15/191609 DRAFTER TOPOGRAPHICAL: JUDSON 01/15/191609 RPT#: [id number] [place] DATE: STATUS: ADM IN [facility] [address] [place] [address] END OF REPORT
--- NOTE | 2019-01-15 16:21 | MORECARE ---
CASE MANAGEMENT DISCHARGE SUMMARY PATIENT: CARLOTA OQUENDO UNIT: [id number] ADM DATE: 01/08/19 AGE: 78 : 38 SEX: F ROOM/BED: [facility] AUTHOR: MARYSOL,DOC PHYSICIAN: REFERRING PHYSICIAN: LUIZA WADE MD DATE OF SERVICE: 01/15/19 Discharge Plan Patient Name: CARLOTA OQUENDO Facility: [facility]:[place] : 1940 Planned Disposition: Home Anticipated Discharge Date: Discharge Date: Expected LOS: Initial Reviewer: [email or web address] Initial Review Date: 01/12/2019 Generated: 01/15/19 5:21 pm Comments DCP- Discharge Planning Updated by [id number]: Isabela Kowalski on 01/15/19 3:[address] CM sent records to [employer] fax [phone]. Home/ portable 02 and nebulizer along with duoneb all ordered and set up. Portable 02 has been delivered to patients room. Patient has caregivers setup for discharge. D/C IMM explained and served 01/15/19 @ 5224. CM will continue to follow and assist as needed with discharge planning / needs. DCP- Discharge Planning Updated by [id number]: Isabela Kowalski on 01/14/19 5:[address] CM received order for home care and home 02 and nebulizer. CM spoke with patient she stated that she wants [facility] - [facility] [phone]. Patient has already spoken with them but she is wanting 24 hr care for the 36-48hrs after discharge. CM explained this request to Hal and he was going to contact patient. CM explained that patient will probably discharge on Friday. CM also spoke with patient regarding DME. CAIT signed for [employer] [facility] [phone] for DME. CM will fax records to set up home 02 and nebulizer. CM will continue to follow and assist as needed with discharge planning / needs. DCP- Discharge Planning Updated by [id number]: Isabela Kowalski on 01/12/19 6:[address] Patient Name: CARLOTA OQUENDO Admission Status: Urgent Accout number: [id number] Admission Date: 01-08-2019 : 13-1940 Admission Diagnosis:MALIGNANT NEOPLASM OF LOWER LOBE, LEFT BRONCHUS OR LUNG Attending: LUIZA WADE Current LOS: 4 Anticipated DC Date: Planned Disposition: Home Primary Insurance: MEDICARE A & B Discharge Planning Comments: CM met with patient at bedside. Patient states she lives alone. Patient states she has a good support system. She states she plans on returning to her home upon discharge. Patient states that prior to admission she has arranged for transportation home and for caregivers to stay with her/ help her when discharged. Her yarsani is setting up meals for her upon discharge. Patient may need walk test if oxygen is required upon discharge. CM will continue to follow and assist as needed with discharge planning / needs. Geophysical Operator: Isabela Kowalski DCPIA - Discharge Planning Initial Assessment Updated by [id number]: Isabela Kowalski on 01/12/19 7:11 pm * Is the patient Alert and Oriented? Yes * How many steps to enter\exit or inside your home? * PCP Juan J * [facility] * Preadmission Environment Home Alone * ADLs Independent * Other Equipment motorized scooter * List name and contact numbers for known caregivers / representatives who currently or will assist patient after discharge: Juanjo Abernathy [facility] - [phone] [facility] Sherri HSV * Verbal permission to speak to the caregivers and representatives has been obtained from the patient. Yes * Community resources currently utilized None * Please name any agencies selected above. Patient states she has caregivers to help when she gets home * Additional services required to return to the preadmission environment? No * Can the patient safely return to the preadmission environment? Yes * Has this patient been hospitalized within the prior 30 days at any hospital? No Coverage Notice Reviewer: [id number] - Isabela Kowalski Notice Issued Date-Time: 01/15/2019 16:03 Notice Type: IM Discharge Notice Notice Delivered To: Patient Relationship to Patient: Self Trade Union Secretary Name: Delivery Method: HAND - Hand Delivered Ashly Days: Prior Verbal Notification: Recipient Understood Notice: Yes Recipient Signature: Yes Med Rec Note Co-signed by Attending: Coverage Notice Comment: Last DP export: 01/15/19 3:11 pm Patient Name: CARLOTA OQUENDO Page [id number] at 1621 All edits/amendments must be made on the electronic document DICTATION DATE: 01/15/191620 MACHINE ROOM ENGINEER: JUDSON 01/15/191620 RPT#: [id number] DC DATE: STATUS: ADM IN [facility] [address] [place] [address] END OF REPORT
--- NOTE | 2019-01-15 19:00 | NUR ---
REPORT RECEIVED AND ASSESSMENT COMPLETED. SEE FLOWSHEET FOR FULL DETAILS. VSS.
--- NOTE | 2019-01-15 21:00 | NUR ---
2100 MEDS GIVEN. PT RESTING IN ROOM READING BOOK. ON 2L NC. VSS WILL MONITOR
--- NOTE | 2019-01-15 22:38 | NUR ---
REASSESSMENT COMPETED. SEE FLOWSHEET. NO CHANGES IN PT STATUS. PT ASSISTED TO RESTROOM. BACK IN BED. 1 VOID PRODUCED. VSS. CALL LIGHT IN REACH BED ALARM ON. WILL MONITOR
--- NOTE | 2019-01-16 02:57 | NUR ---
BED ALARM GOING OFF. PATIENT QUICKLY GOT OUT OF BED. PULLED ALL LINES/ MONITORING. ASK PATIENT WHAT WAS WRONG AND WHERE SHE WAS GOING. PT RESPONDED BY SAYING " WHAT DO YOU THINK IM DOING?" AND BEGAN TO RUB HER HANDS ON MY ARMS AND CHEST IN AN ODD MANNER. REDIRECTED PATIENT AND ASSISTED TO BED. RECONNECTED MONITORS. BED ALARM ON. NOW SITTING CLOSE TO PATIENTS ROOM TO ENSURE SAFETY. WILL MONITOR CLOSELY.
[2019-01-16 03:00] VITALS: BP 152/82
--- NOTE | 2019-01-16 03:00 | NUR ---
BED ALARM GOING OFF. RNX1 AT BEDSIDE WHEN I ENTERED THE ROOM ALL MONITORS WHERE REMOVED. PT INAPPROPRIATELY TOUCHING STAFF DISORIENTED BUT QUICKLY REORIENTED TO PLACE, TIME AND SITUATION. PT WITH HAD GRABBING OF L SUBCLAVIAN CENTRAL LINE. AREA AROUND LINE RED FROM SCRATCHING. CENTRAL LINE DISLODGED. COMPLETELY REMOVED BY MYSELF. PT VERBALIZED OFF ELOINA COMMENTS THAT DID NOT SEEM TO FIT SITUATION. ALL ICU MONITORS REESTABLISHED WILL CONITNUE TO MONITOR.
--- NOTE | 2019-01-16 03:30 | NUR ---
PT CONTINUALLY OUT OF BED PULLING AT LINES. LAND DEVELOPMENT MANAGER CALLED ADDITIONAL STAFF REQUESTED. WILL COINTUE TO MONITOR.
--- NOTE | 2019-01-16 03:37 | NUR ---
PT UP OUT OF BED ATTEMPTED TO ENTER ANOTHER PATIENTS ROOM DURING THEIR ADMISSIONS PROCESS. BED ALARM ON. PT IS VERY MOBILE.
--- NOTE | 2019-01-16 06:04 | NUR ---
PT RESTING IN BED. NO NEW ATTEMPTS TO GEET OUT OF BED. WILL CONTINUE TO MONITOR
[2019-01-16 07:15] VITALS: BP 132/77
--- NOTE | 2019-01-16 12:00 | NUR ---
1040: DISCHARGE INSTRUCTIONS REVIEWED WITH PATIENT. 1200: ESCORTED TO VEHICLE VIA WC. DISCHARGED HOME WITH FRIENDS.
--- NOTE | 2019-01-18 08:32 | MORECARE ---
CASE MANAGEMENT DISCHARGE SUMMARY PATIENT: CARLOTA OQUENDO UNIT: [id number] ADM DATE: 01/08/19 AGE: 78 : 38 SEX: F ROOM/BED: [facility] AUTHOR: MARYSOL,DOC PHYSICIAN: REFERRING PHYSICIAN: LUIZA WADE MD DATE OF SERVICE: 01/18/19 Discharge Plan Patient Name: CARLOTA OQUENDO Facility: [facility]:[place] : 1940 Planned Disposition: Home Anticipated Discharge Date: Discharge Date: 01/16/2019 Expected LOS: Initial Reviewer: [id number] Initial Review Date: 01/12/2019 Generated: 01/18/19 9:32 am Comments DCP- Discharge Planning Updated by [email or web address]: Isabela Kowalski on 01/15/19 3:[address] CM sent records to [employer] fax [phone]. Home/ portable 02 and nebulizer along with duoneb all ordered and set up. Portable 02 has been delivered to patients room. Patient has caregivers setup for discharge. D/C IMM explained and served 01/15/19 @ 6282. CM will continue to follow and assist as needed with discharge planning / needs. DCP- Discharge Planning Updated by [email or web address]: Isabela Kowalski on 01/14/19 5:[address] CM received order for home care and home 02 and nebulizer. CM spoke with patient she stated that she wants [facility] - [facility] [phone]. Patient has already spoken with them but she is wanting 24 hr care for the 36-48hrs after discharge. CM explained this request to Hal and he was going to contact patient. CM explained that patient will probably discharge on Friday. CM also spoke with patient regarding DME. CAIT signed for [employer] [facility] [phone] for DME. CM will fax records to set up home 02 and nebulizer. CM will continue to follow and assist as needed with discharge planning / needs. DCP- Discharge Planning Updated by [id number]: Isabela Kowalski on 01/12/19 6:[address] Patient Name: CARLOTA OQUENDO Admission Status: Urgent Accout number: [id number] Admission Date: 01-08-2019 : 1940 Admission Diagnosis:MALIGNANT NEOPLASM OF LOWER LOBE, LEFT BRONCHUS OR LUNG Attending: LUIZA WADE Current LOS: 4 Anticipated DC Date: Planned Disposition: Home Primary Insurance: MEDICARE A & B Discharge Planning Comments: CM met with patient at bedside. Patient states she lives alone. Patient states she has a good support system. She states she plans on returning to her home upon discharge. Patient states that prior to admission she has arranged for transportation home and for caregivers to stay with her/ help her when discharged. Her judaism is setting up meals for her upon discharge. Patient may need walk test if oxygen is required upon discharge. CM will continue to follow and assist as needed with discharge planning / needs. Dry Cell And Battery Assembler: Isabela PRATT - Discharge Planning Initial Assessment Updated by [email or web address]: Isabela Kowalski on 01/12/19 7:11 pm * Is the patient Alert and Oriented? Yes * How many steps to enter\exit or inside your home? * PCP Juan J * [facility] * Preadmission Environment Home Alone * ADLs Independent * Other Equipment motorized scooter * List name and contact numbers for known caregivers / representatives who currently or will assist patient after discharge: Juanjo Abernathy [facility] - [phone] [facility] Sherri HSV * Verbal permission to speak to the caregivers and representatives has been obtained from the patient. Yes * Community resources currently utilized None * Please name any agencies selected above. Patient states she has caregivers to help when she gets home * Additional services required to return to the preadmission environment? No * Can the patient safely return to the preadmission environment? Yes * Has this patient been hospitalized within the prior 30 days at any hospital? No Coverage Notice Reviewer: [id number] - Isabela Kowalski Notice Issued Date-Time: 01/15/2019 16:03 Notice Type: IM Discharge Notice Notice Delivered To: Patient Relationship to Patient: Self Dynamo Repairer Name: Delivery Method: HAND - Hand Delivered Ashly Days: Prior Verbal Notification: Recipient Understood Notice: Yes Recipient Signature: Yes Med Rec Note Co-signed by Attending: Coverage Notice Comment: Last DP export: 01/15/19 3:21 pm Patient Name: CARLOTA OQUENDO Page [id number] at 0832 All edits/amendments must be made on the electronic document DICTATION DATE: 01/18/19830 WASTEWATER TREATMENT PLANT INSTRUCTOR: JUDSON 01/18/19830 RPT#: [id number] DC DATE:01/16/19 STATUS: DIS IN [facility] [address] [place] [address] END OF REPORT
== END 2019-01-16 12:00 | disposition home or self-care (01) | DRG 164 ==
LOC: D.CVICU 05:00 → D.SDCHOLD 07:30 → D.CVICU 01-16 12:00
PROVIDERS: Thoracic Surgery (Cardiothoracic Vascular Surgery); ADMIT Internal Medicine Cardiovascular Disease; ATTEND Internal Medicine Cardiovascular Disease
PROC: 0BTJ0ZZ Resection of Left Lower Lung Lobe, Open Approach (ICD-10-PCS; 2019-01-08)
PROC: 07T70ZZ Resection of Thorax Lymphatic, Open Approach (ICD-10-PCS; 2019-01-08)
PROC: 0BJ08ZZ Inspection of Tracheobronchial Tree, Via Natural or Artificial Opening Endoscopic (ICD-10-PCS; principal; 2019-01-08 07:30)
DX: C34.32 Malignant neoplasm of lower lobe, left bronchus or lung (principal); J93.9 Pneumothorax, unspecified; J98.11 Atelectasis; G90.50 Complex regional pain syndrome I, unspecified; F05 Delirium due to known physiological condition; J44.9 Chronic obstructive pulmonary disease, unspecified; K21.9 Gastro-esophageal reflux disease without esophagitis; Z87.891 Personal history of nicotine dependence; I25.10 Atherosclerotic heart disease of native coronary artery without angina pectoris; E55.9 Vitamin D deficiency, unspecified; E78.00 Pure hypercholesterolemia, unspecified; R53.81 Other malaise

== ENCOUNTER → 2019-01-26 13:49 | Outpatient (CLI) | payer MEDICARE, BC ==
[~2019-01-26 13:49] MED LIST changes: +ASPIRIN EC81 M1 PO; +LOPRESSOR25 MG PO; +PERCOCET 5-3251 TAB PO
== END | disposition home or self-care (01) ==
LOC: D.RAD 13:49
DX: J91.8 Pleural effusion in other conditions classified elsewhere (principal)

== ENCOUNTER → 2019-02-26 09:36 | Outpatient (CLI) | payer MEDICARE, BC ==
[2019-01-09 15:46] VITALS: BMI 26.5
== END | disposition home or self-care (01) ==
LOC: D.RAD 09:36
PROVIDERS: ATTEND Thoracic Surgery (Cardiothoracic Vascular Surgery)
DX: J90 Pleural effusion, not elsewhere classified (principal)

== ENCOUNTER → 2019-05-31 10:23 | Outpatient (CLI) | payer MEDICARE, BC ==
[2019-01-09 15:46] VITALS: BMI 26.5
== END | disposition home or self-care (01) ==
LOC: D.RAD 10:23
PROVIDERS: ATTEND Internal Medicine Pulmonary Disease
DX: J44.9 Chronic obstructive pulmonary disease, unspecified (principal)

== ENCOUNTER → 2020-05-26 12:05 | Outpatient (CLI) | payer MEDICARE, BC ==
[2019-01-09 15:46] VITALS: BMI 26.5
== END | disposition home or self-care (01) ==
LOC: D.RAD 02-02 12:45 → D.RT 02-02 12:45 → D.RAD 12:05 → D.RT 13:00
PROVIDERS: ATTEND Internal Medicine Pulmonary Disease
DX: J44.9 Chronic obstructive pulmonary disease, unspecified (principal)